=== PATIENT | female | born 2000 | race Caucasian/White ===

== ENCOUNTER 2020-10-01 20:49 | Inpatient (IN) | payer MEDICAID, SELFPAY ==
[2020-10-01 21:37] VITALS: BMI 18.2
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
[2020-10-02 06:00] VITALS: BP 113/61; PULSE 77; RESP 18; TEMP 36.4; O2SAT 97
--- NOTE | 2020-10-02 12:16 | PM.IMCN ---
History of Present Illness Data of Consult Service Date: 10/02/20 Primary Care Provider: Unknown Physician HPI Reason for consult: medical assessment 20 year old female with no known medical issues who is presently admitted to the inpatient Psych for major depression. She is cooperative with the evaluation. She denies any chronic medical illness and does not take any medication regular basis, she is current with covid 19 vaccine. She is in college but has put her social work study on hold for new. She denies, chest pain, sob, or other acute complaint Review of Systems Review of Systems: Gen: no fever Resp: no sob, no cough CV: no chest, no PACHECO, no leg edema GI: No n/v, no abd pain Neuro: No confusion Yes all other systems are reviewed and are negative [facility] Medical History (Updated 10/02/20 @ 12:21 by Alex Fuentes MD) Major depression Functional capacity: independent ambulation Patient : No Pertinent family history: Father with Parkinson, Mother with low blood pressure and vertigo Social History Household Members: Family Housing: House Do you presently have visiting nurse or other home services: No Patient Tobacco Use Status: Never used Tobacco Smoked in Last 30 Days: No e-Cigarette/Vaping Use: Never Used Patient Given Instructions on How to Stop Smoking: No Second Hand Smoke Exposure: No Use of substances other than those prescribed or required for medical reasons: Yes Substance Use Type: Marijuana Substance Use Frequency: Monthly Last Used Substance: Weeks (ago) Currently Displaying Signs/Symptoms of Drug Intoxication Withdrawal: No Any prior treatment program specific to substance use: No Have you been hit, kicked, punched, or otherwise hurt by someone within the past year? If so, by whom?: No Do you feel safe in your current relationship?: No Current Relationship Is there a partner from a previous relationship who is making you feel unsafe now?: No Are you made to feel afraid or neglected: No Advance Directives: No Advance Directives Information Provided: No Do you have thoughts of harming others: None Do you have a plan to hurt others: No Plan Recently lost weight without trying: No Eating poorly because of decreased appetite: No Nutrition Risks: No Nutritional Risk Patient : No : No Poor oral hygiene: No service: No Sexual orientation: Did not discuss Meds Allergies Allergy/AdvReac Type Severity Reaction Status Date / Time No Known Allergies Allergy Verified 10/01/20 21:39 Active Medications: Current Medications Generic Name Dose Route Start Last Admin Trade Name Caren PRN Reason Stop Dose Admin Acetaminophen 650 mg 10/01/20 22:03 Acetaminophen 325 Mg Tablet PO Q6H PRN Headache/Pain Mild Scale (1-3) Al Hydroxide/Mg Hydroxide 30 ml 10/01/20 22:03 Magnesium Hydrox/Alum Hydrox 30 Ml Oral.Susp PO Q6H PRN Heartburn/Nausea Hydroxyzine HCl 25 mg 10/01/20 22:03 Hydroxyzine Hcl 25 Mg Tablet PO BEDTIME PRN Anxiety Magnesium Hydroxide 30 ml 10/01/20 22:03 Milk Of Magnesia 30 Ml Oral.Susp PO DAILY PRN Constipation Trazodone HCl 50 mg 10/01/20 22:03 Trazodone Hcl 50 Mg Tablet PO BEDTIME PRN Insomnia Home Medications Medication Instructions Recorded Confirmed Last Taken Type 04/24 (21) See Rx Instructions .ROUTE .COMPLEX 10/01/20 10/01/20 09/30/20 21:00 History 1 tab Physical Exam Vital Signs and Narrative: Vital Signs: Last Vital Signs Temp 97.6 F 10/02/20 06:00 Pulse 77 10/02/20 06:00 Resp 18 10/02/20 06:00 BP 113/61 10/02/20 06:00 Pulse Ox 97 10/02/20 06:00 Body Mass Index 18.2 Const: Other: Constitutional Awake and Alert, No apparent distress Neck Supple, No lymphadenopathy Cardiovascular RRR, No M/R/G, S1 S2, No S3 S4, No pedal edema Respiratory Lungs clear, No respiratory distress Gastrointestinal Non tender, Non-distended Skin No rash Neurological Alert & oriented x3 Psychological depressed affect Assessment and Plan (1) Major depression: Status: Acute 20 year female with depression otherwise health, currently admitted to inpatient Psych for issues related to Major depression, has no acute medical issues at the moment and recommend continue current Psychiatric care with Pharmacotherapy an behavioral therapy. Suggest checking routine labs such BMP, CBC and TSH. Please contact us for new issues or concerns. Thanks
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
[2020-10-02 18:00] VITALS: BP 126/86; PULSE 62; RESP 16; TEMP 36.6; O2SAT 98
[2020-10-02 21:44] LABS: UPreg QC Valid YES; Urine Pregnancy NEGATIVE (NEGATIVE)
[2020-10-03 07:00] VITALS: BMI 18.5
--- NOTE | 2020-10-03 08:00 | ECG_ITS ---
Test Reason : ON MEDS Blood Pressure : / mmHG Vent. Rate : 057 BPM Atrial Rate : 057 BPM P-R Int : 138 ms QRS Dur : 098 ms QT Int : 402 ms P-R-T Axes : 038 069 041 degrees QTc Int : 391 ms Sinus bradycardia with sinus arrhythmia Otherwise normal ECG No previous ECGs available Referred By: Neyda Giraldo Electronically Signed By:JUAN ESCOBEDO MD
[2020-10-03] MEDS: FLUoxetine HCl Oral Solution 20 MG/5 ML SOLUTION 10 MG PO (08:21)
[2020-10-03] MEDS: Multivitamin TABLET 1 TAB PO (08:21)
[2020-10-03 08:23] LABS: MANUAL DIFF FLAG NO
[2020-10-03 08:26] LABS: Basophils Percent Auto 0.6 % (0-2); Eosinophils Absolute Auto 0.1 X10*3/uL (0.0-0.4); Eosinophils Percent Auto 2.3 % (0-4); Hematocrit 41.3 % (37-47); Hemoglobin 13.6 g/dl (12.0-16.0); Imm Gran Abs Auto 0.01 X10*3/uL (0.00-0.03); Imm Gran Pct Auto 0.2 % (0.0-0.4); Lymphocytes Absolute Auto 2.5 X10*3/uL (1.2-4.9); Lymphocytes Percent Auto 48.9 % (20-40); Mean Corpuscular HGB Conc 32.9 g/dl (31.0-35.0); Mean Corpuscular Hemoglobin 27.8 pg (27.0-33.0); Mean Corpuscular Volume 84.3 fL (80-98); Mean Platelet Volume 9.5 fL (9.4-12.3); Monocytes Absolute Auto 0.3 X10*3/uL (0.1-1.2); Neutrophils Absolute Auto 2.2 X10*3/uL (2.0-8.3); Platelet Count 207 X10*3/uL (160-400); Red Cell Distribution Width 12.3 % (11.0-16.0); White Blood Count 5.2 X10*3/uL (4.8-10.8)
[2020-10-03 08:54] LABS: Alanine Aminotransferase < 6 U/L (0-31); Albumin Level 4.1 g/dL (3.5-5.0); Alkaline Phosphatase 34 U/L (39-117); Anion Gap 10 (12-20); Aspartate Amino Transferase 12 U/L (5-31); Bilirubin Total 0.5 mg/dL (0.0-1.0); Blood Urea Nitrogen 11 mg/dL (9-16); Calcium 9.5 mg/dL (8.4-10.2); Carbon Dioxide 30 mmol/L (22-29); Chloride 106 mmol/L (96-108); Cholesterol 165 mg/dL; Creatinine Clr Calc Pharmacy 79.9; Estimated Glomerular Filt Rate > 60; Glucose Random 91 mg/dL (60-115); HDL Cholesterol 39 mg/dL; LDL Cholesterol Calculated 110 mg/dl; Potassium 4.5 mmol/L (3.3-5.1); Sodium 141 mmol/L (135-145); Triglycerides 83 mg/dL
[2020-10-03 09:07] LABS: Estimated Average Glucose 97 mg/dL
[2020-10-03 09:10] LABS: Thyroid Stimulating Hormone 1.14 uIU/mL (0.32-4.0); Vitamin D 25-OH Total 47.9 ng/mL (>30)
[2020-10-03 09:47] LABS: Folate 16.9 ng/mL (> or = 4.0); Vitamin B12 508 pg/mL (200-900)
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
[2020-10-03 17:45] VITALS: BP 124/68; PULSE 58; TEMP 37
[2020-10-03] MEDS: QUEtiapine Fumarate 25 MG TABLET 12.5 MG PO (22:26)
[2020-10-04 06:00] VITALS: BP 120/73; PULSE 79; RESP 16; O2SAT 99
[2020-10-04] MEDS: Multivitamin TABLET 1 TAB PO (09:16)
[2020-10-04] MEDS: FLUoxetine HCl Oral Solution 20 MG/5 ML SOLUTION 10 MG PO (09:16)
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
[2020-10-04 16:51] VITALS: BP 118/65; PULSE 84; RESP 16; TEMP 36.5; O2SAT 98
[2020-10-04] MEDS: QUEtiapine Fumarate 25 MG TABLET 12.5 MG PO (21:17)
[2020-10-05 06:48] VITALS: BP 135/77; PULSE 60; RESP 16; O2SAT 99
[2020-10-05] MEDS: Multivitamin TABLET 1 TAB PO (08:47)
[2020-10-05] MEDS: FLUoxetine HCl 10 MG CAPSULE PO (08:47)
--- NOTE | 2020-10-05 14:23 | HO.PSYCHPN ---
Subjective Subjective Date of Service: 10/05/20 Reason For Visit: Major Depressive Disorder Interim History: Pt reports he is tolerating prozac and seroquel well; reports hse slept a little better last night- thinks she may need more seroquel but would like to wait and try it again. she is feeling more secure in milieu. Seen in more interactive states today with team and peers. Review of Systems Review of Systems Gen: no fever Resp: no sob, no cough CV: no chest, no PACHECO, no leg edema GI: No n/v, no abd pain Neuro: No confusion Yes all other systems are reviewed and are negative Reports behavioral changes Psychiatric: Reports abnormal sleep pattern, Reports anxiety, Reports behavioral changes, Reports change in appetite, Reports depression, Reports difficulty concentrating, Reports auditory hallucinations, Reports hopelessness, Reports irritability, Reports anhedonia, Reports mood swings, Reports visual hallucinations, Reports hallucinations and Reports suicidal ideation Mental Status Exam Mental Status Exam Patient Appearance: Appropriate Patient Orientation: Person, Place, Time and Situation Level of Consciousness: Alert Patient Behavior: Appropriate and Talkative Mood Description: Depressed and Anxious Affect Description: Flat Patient Cognition Impaired: No Ability to Follow Directions: Good Speech Pattern: Clear (soft spoken) and Spontaneous Speech Memory Description: Intact Thought Content: positive for Intact Judgement: Good Diagnostics Vital Signs (24Hr): Vital Signs - 24 hr 10/04/20 16:51 10/05/20 06:48 Temperature 97.7 F Pulse Rate 84 60 Respiratory Rate 16 16 Blood Pressure 118/65 135/77 Pulse Oximetry 98 99 Body Mass Index 18.5 Labs Results: 10/03/20 08:09 10/03/20 08:09 Medications Medications Current Medications Generic Name Dose Route Start Last Admin Trade Name Freq PRN Reason Stop Dose Admin Acetaminophen 650 mg 10/01/20 22:03 Acetaminophen 325 Mg Tablet PO Q6H PRN Headache/Pain Mild Scale (1-3) Al Hydroxide/Mg Hydroxide 30 ml 10/01/20 22:03 Magnesium Hydrox/Alum Hydrox 30 Ml Oral.Susp PO Q6H PRN Heartburn/Nausea Fluoxetine HCl 10 mg 10/05/20 09:00 10/05/20 08:47 Fluoxetine Hcl 10 Mg Capsule PO 10 mg DAILY OKSANA Administration Hydroxyzine HCl 25 mg 10/01/20 22:03 Hydroxyzine Hcl 25 Mg Tablet PO BEDTIME PRN Anxiety Magnesium Hydroxide 30 ml 10/01/20 22:03 Milk Of Magnesia 30 Ml Oral.Susp PO DAILY PRN Constipation Multivitamins/Vitamin C 1 tab 10/03/20 09:00 10/05/20 08:47 Multivitamin Tablet PO 1 tab DAILY OKSANA Administration Non-Form Med ( 1 tab 10/05/20 21:00 Norethindrone PO Ethinyl Estradiol 1/ BEDTIME OKSANA 0.02mg(Junel)) Quetiapine Fumarate 12.5 mg 10/03/20 16:38 10/03/20 22:26 Quetiapine Fumarate 25 Mg Tablet PO 12.5 mg TID PRN Administration agitation,anxiety,insomnia Quetiapine Fumarate 12.5 mg 10/04/20 21:00 10/04/20 21:17 Quetiapine Fumarate 25 Mg Tablet PO 12.5 mg BEDTIME OKSANA Administration Trazodone HCl 50 mg 10/01/20 22:03 Trazodone Hcl 50 Mg Tablet PO BEDTIME PRN Insomnia Allergies Allergies Allergy/AdvReac Type Severity Reaction Status Date / Time No Known Allergies Allergy Verified 10/01/20 21:39 Assessment & Plan Assessment & Plan (1) Severe recurrent major depression with psychotic features, mood-congruent: Status: Acute Code(s): F33.3 - Major depressive disorder, recurrent, severe with psychotic symptoms Assessment and Plan: 20 yo female, hx of childhood trauma, depressive and anxious sx since childhood, with reports of SI with plan to OD on Tylenol. Pt has been decompensating by her report for over a month with pre-catatonic sx including an inability to get out of bed, perform ADL's, eat, drink, or basically function. Precipitants include being home from college in [facility] and unable to return due to pandemic restrictions, father is ill, pt is uncomfortable living with parents has no money, no job and feels she has lost control. Hx of Prozac, Seroquel combination which has helped her in the past. Plan- no change continue as per below : Continue Prozac 10 mg daily Change Seroquel to 12.5 mg tid prn and 12.5 mg hs Collateral contacts (2) PTSD (post-traumatic stress disorder): Status: Acute Code(s): F43.10 - Post-traumatic stress disorder, unspecified Greater than 50% of the session was spent on counseling and/or coordination of care Reason for contiued inpatient stay Substantial Risk for: harm to self, inability to function and med/psych decompensation
[2020-10-05 18:00] VITALS: BP 126/77; PULSE 88; TEMP 36.4
[2020-10-05] MEDS: QUEtiapine Fumarate 25 MG TABLET 12.5 MG PO (20:26)
[2020-10-06 06:00] VITALS: BP 109/68; PULSE 71; RESP 16; TEMP 36.8; O2SAT 97
[2020-10-06] MEDS: FLUoxetine HCl 10 MG CAPSULE PO (08:40)
[2020-10-06] MEDS: Multivitamin TABLET 1 TAB PO (08:40)
--- NOTE | 2020-10-06 11:38 | P.PNPSI_ITS ---
Subjective Subjective Date of Service: 10/06/20 Reason For Visit: Major Depressive Disorder Interim History: Pt reports she is tolerating prozac and seroquel well; reports she would like to increase the seroquel at HS to 25 mg. she reports feeling a little more anxious today and reflects it may be due to coffee. discussed using seroquel prn but she will try coping skills and hydration. Seen in more interactive states today with team and peers. Review of Systems Review of Systems Gen: no fever Resp: no sob, no cough CV: no chest, no PACHECO, no leg edema GI: No n/v, no abd pain Neuro: No confusion Yes all other systems are reviewed and are negative Reports behavioral changes Psychiatric: Reports abnormal sleep pattern, Reports anxiety, Reports behavioral changes, Reports change in appetite, Reports depression, Reports difficulty concentrating, Reports auditory hallucinations, Reports hopelessness, Reports irritability, Reports anhedonia, Reports mood swings, Reports visual hallucinations, Reports hallucinations and Reports suicidal ideation Mental Status Exam Mental Status Exam Patient Appearance: Appropriate Patient Orientation: Person, Place, Time and Situation Level of Consciousness: Alert Patient Behavior: Appropriate and Talkative Mood Description: Depressed and Anxious Affect Description: Appropriate and Anxious Patient Cognition Impaired: No Ability to Follow Directions: Good Speech Pattern: Clear (soft spoken) and Spontaneous Speech Memory Description: Intact Judgement: Good Diagnostics Vital Signs (24Hr): Vital Signs - 24 hr 10/05/20 18:00 10/06/20 06:00 Temperature 97.5 F 98.2 F Pulse Rate 88 71 Respiratory Rate 16 Blood Pressure 126/77 109/68 Pulse Oximetry 97 Body Mass Index 18.5 Labs Results: 10/03/20 08:09 10/03/20 08:09 Medications Medications Current Medications Generic Name Dose Route Start Last Admin Trade Name Freq PRN Reason Stop Dose Admin Acetaminophen 650 mg 10/01/20 22:03 Acetaminophen 325 Mg Tablet PO Q6H PRN Headache/Pain Mild Scale (1-3) Al Hydroxide/Mg Hydroxide 30 ml 10/01/20 22:03 Magnesium Hydrox/Alum Hydrox 30 Ml Oral.Susp PO Q6H PRN Heartburn/Nausea Fluoxetine HCl 10 mg 10/05/20 09:00 10/06/20 08:40 Fluoxetine Hcl 10 Mg Capsule PO 10 mg DAILY OKSANA Administration Hydroxyzine HCl 25 mg 10/01/20 22:03 Hydroxyzine Hcl 25 Mg Tablet PO BEDTIME PRN Anxiety Magnesium Hydroxide 30 ml 10/01/20 22:03 Milk Of Magnesia 30 Ml Oral.Susp PO DAILY PRN Constipation Multivitamins/Vitamin C 1 tab 10/03/20 09:00 10/06/20 08:40 Multivitamin Tablet PO 1 tab DAILY OKSANA Administration Non-Form Med ( 1 tab 10/05/20 21:00 10/05/20 20:27 Norethindrone PO 1 tab Ethinyl Estradiol 1/ BEDTIME OKSANA Administration 0.02mg(Junel)) Quetiapine Fumarate 12.5 mg 10/03/20 16:38 10/03/20 22:26 Quetiapine Fumarate 25 Mg Tablet PO 12.5 mg TID PRN Administration agitation,anxiety,insomnia Quetiapine Fumarate 12.5 mg 10/04/20 21:00 10/05/20 20:26 Quetiapine Fumarate 25 Mg Tablet PO 12.5 mg BEDTIME OKSANA Administration Trazodone HCl 50 mg 10/01/20 22:03 Trazodone Hcl 50 Mg Tablet PO BEDTIME PRN Insomnia Allergies Allergies Allergy/AdvReac Type Severity Reaction Status Date / Time No Known Allergies Allergy Verified 10/01/20 21:39 Assessment & Plan Assessment & Plan (1) Severe recurrent major depression with psychotic features, mood-congruent: Status: Acute Code(s): F33.3 - Major depressive disorder, recurrent, severe with psychotic symptoms Assessment and Plan: 20 yo female, hx of childhood trauma, depressive and anxious sx since childhood, with reports of SI with plan to OD on Tylenol. Pt has been decompensating by her report for over a month with pre-catatonic sx including an inability to get out of bed, perform ADL's, eat, drink, or basically function. Precipitants include being home from college in [facility] and unable to return due to pandemic restrictions, father is ill, pt is uncomfortable living with parents has no money, no job and feels she has lost control. Hx of Prozac, Seroquel combination which has helped her in the past. Plan- Continue Prozac 10 mg daily *Change Seroquel to 12.5 mg tid prn and 25 mg hs Collateral contacts (2) PTSD (post-traumatic stress disorder): Status: Acute Code(s): F43.10 - Post-traumatic stress disorder, unspecified Greater than 50% of the session was spent on counseling and/or coordination of care Reason for contiued inpatient stay Substantial Risk for: harm to self, rapid decompensation and med/psych decompensation
[2020-10-06 16:59] VITALS: BP 124/77; PULSE 64; TEMP 36.7; O2SAT 98
[2020-10-06] MEDS: QUEtiapine Fumarate 25 MG TABLET PO (21:19)
[2020-10-07 06:00] VITALS: BP 114/68; PULSE 77; RESP 16; TEMP 36.4; O2SAT 97
[2020-10-07] MEDS: FLUoxetine HCl 10 MG CAPSULE PO (08:33)
[2020-10-07] MEDS: Multivitamin TABLET 1 TAB PO (08:33)
--- NOTE | 2020-10-07 12:28 | HO.PSYCHPN ---
Subjective Subjective Date of Service: 10/07/20 Reason For Visit: Major Depressive Disorder Interim History: Pt reports she is tolerating prozac and seroquel well; reports she slept a little better with seroquel 25 mg at at HS. she is working on practicing coping skills. Seen in more interactive states today with team and peers. Review of Systems Review of Systems Gen: no fever Resp: no sob, no cough CV: no chest, no PACHECO, no leg edema GI: No n/v, no abd pain Neuro: No confusion Yes all other systems are reviewed and are negative Reports behavioral changes Psychiatric: Reports abnormal sleep pattern, Reports anxiety, Reports behavioral changes, Reports change in appetite, Reports depression, Reports difficulty concentrating, Reports auditory hallucinations, Reports hopelessness, Reports irritability, Reports anhedonia, Reports mood swings, Reports visual hallucinations, Reports hallucinations and Reports suicidal ideation Mental Status Exam Mental Status Exam Patient Appearance: Appropriate Patient Orientation: Person, Place, Time and Situation Level of Consciousness: Alert Patient Behavior: Appropriate and Talkative Mood Description: Depressed and Anxious Affect Description: Appropriate and Anxious Patient Cognition Impaired: No Ability to Follow Directions: Good Speech Pattern: Clear (soft spoken) and Spontaneous Speech Memory Description: Intact Judgement: Good Diagnostics Vital Signs (24Hr): Vital Signs - 24 hr 10/06/20 16:59 10/07/20 06:00 Temperature 98.0 F 97.6 F Pulse Rate 64 77 Respiratory Rate 16 Blood Pressure 124/77 114/68 Pulse Oximetry 98 97 Body Mass Index 18.5 Labs Results: 10/03/20 08:09 10/03/20 08:09 Medications Medications Current Medications Generic Name Dose Route Start Last Admin Trade Name Joseq PRN Reason Stop Dose Admin Acetaminophen 650 mg 10/01/20 22:03 Acetaminophen 325 Mg Tablet PO Q6H PRN Headache/Pain Mild Scale (1-3) Al Hydroxide/Mg Hydroxide 30 ml 10/01/20 22:03 Magnesium Hydrox/Alum Hydrox 30 Ml Oral.Susp PO Q6H PRN Heartburn/Nausea Fluoxetine HCl 10 mg 10/05/20 09:00 10/07/20 08:33 Fluoxetine Hcl 10 Mg Capsule PO 10 mg DAILY OKSANA Administration Hydroxyzine HCl 25 mg 10/01/20 22:03 Hydroxyzine Hcl 25 Mg Tablet PO BEDTIME PRN Anxiety Magnesium Hydroxide 30 ml 10/01/20 22:03 Milk Of Magnesia 30 Ml Oral.Susp PO DAILY PRN Constipation Multivitamins/Vitamin C 1 tab 10/03/20 09:00 10/07/20 08:33 Multivitamin Tablet PO 1 tab DAILY OKSANA Administration Non-Form Med ( 1 tab 10/05/20 21:00 10/06/20 21:20 Norethindrone PO 1 tab Ethinyl Estradiol 1/ BEDTIME OKSANA Administration 0.02mg(Junel)) Quetiapine Fumarate 12.5 mg 10/03/20 16:38 10/03/20 22:26 Quetiapine Fumarate 25 Mg Tablet PO 12.5 mg TID PRN Administration agitation,anxiety,insomnia Quetiapine Fumarate 25 mg 10/06/20 21:00 10/06/20 21:19 Quetiapine Fumarate 25 Mg Tablet PO 25 mg BEDTIME OKSANA Administration Trazodone HCl 50 mg 10/01/20 22:03 Trazodone Hcl 50 Mg Tablet PO BEDTIME PRN Insomnia Allergies Allergies Allergy/AdvReac Type Severity Reaction Status Date / Time No Known Allergies Allergy Verified 10/01/20 21:39 Assessment & Plan Assessment & Plan (1) Severe recurrent major depression with psychotic features, mood-congruent: Status: Acute Code(s): F33.3 - Major depressive disorder, recurrent, severe with psychotic symptoms Assessment and Plan: 20 yo female, hx of childhood trauma, depressive and anxious sx since childhood, with reports of SI with plan to OD on Tylenol. Pt has been decompensating by her report for over a month with pre-catatonic sx including an inability to get out of bed, perform ADL's, eat, drink, or basically function. Precipitants include being home from college in [facility] and unable to return due to pandemic restrictions, father is ill, pt is uncomfortable living with parents has no money, no job and feels she has lost control. Hx of Prozac, Seroquel combination which has helped her in the past. Plan- Continue Prozac 10 mg daily Seroquel to 12.5 mg tid prn and 25 mg hs Collateral contacts (2) PTSD (post-traumatic stress disorder): Status: Acute Code(s): F43.10 - Post-traumatic stress disorder, unspecified Greater than 50% of the session was spent on counseling and/or coordination of care Reason for contiued inpatient stay Substantial Risk for: harm to self and rapid decompensation
[2020-10-07 18:00] VITALS: BP 117/74; PULSE 82; TEMP 36.9
[2020-10-07] MEDS: QUEtiapine Fumarate 25 MG TABLET PO (21:51)
[2020-10-08 06:00] VITALS: BP 113/65; PULSE 82; RESP 16; TEMP 36.4; O2SAT 97
[2020-10-08] MEDS: Multivitamin TABLET 1 TAB PO (08:59)
[2020-10-08] MEDS: FLUoxetine HCl 10 MG CAPSULE PO (08:59)
[2020-10-08 17:12] VITALS: BP 122/73; PULSE 75; RESP 18; TEMP 37.1; O2SAT 99
--- NOTE | 2020-10-08 17:12 | P.PNPSI_ITS ---
Subjective Subjective Date of Service: 10/08/20 Reason For Visit: Major Depressive Disorder Subjective Notes: Conditional Voluntary Healthcare Proxy: No Guardianship: No Medical Problems Affecting Mental Status: No Interim History: Pt feeling improved with medications having been re-started and milieu work. She is visable, active and appears comfortable with team and peers. She believes current crisis has passed, with assistance from team and medications. She denies SI, HI and asks to discuss discharge. We will plan for 09/09 with antidepressant increase. Medication Compliance: Yes Side effects from medications: No Attending Groups: Yes Review of Systems Review of Systems Yes all other systems are reviewed and are negative Psychiatric: Reports no additional psychiatric complaints and Reports suicidal ideation (denies) Mental Status Exam Mental Status Exam Patient Appearance: Appropriate Patient Orientation: Person, Place, Time and Situation Level of Consciousness: Awake and Alert Patient Behavior: Appropriate, Talkative and Cooperative Mood Description: Anxious and Apprehensive Affect Description: Happy Patient Cognition Impaired: No Ability to Follow Directions: Good Speech Pattern: Spontaneous Speech Memory Description: Intact Hallucinations: None Delusions: Not Present Thought Process: Intact Thought Content: positive for Intact Judgement: Good Diagnostics Vital Signs (24Hr): Vital Signs - 24 hr 10/07/20 18:00 10/08/20 06:00 Temperature 98.4 F 97.5 F Pulse Rate 82 82 Respiratory Rate 16 Blood Pressure 117/74 113/65 Pulse Oximetry 97 Body Mass Index 18.5 Labs Results: 10/03/20 08:09 10/03/20 08:09 Medications Medications Current Medications Generic Name Dose Route Start Last Admin Trade Name Freq PRN Reason Stop Dose Admin Acetaminophen 650 mg 10/01/20 22:03 Acetaminophen 325 Mg Tablet PO Q6H PRN Headache/Pain Mild Scale (1-3) Al Hydroxide/Mg Hydroxide 30 ml 10/01/20 22:03 Magnesium Hydrox/Alum Hydrox 30 Ml Oral.Susp PO Q6H PRN Heartburn/Nausea Fluoxetine HCl 10 mg 10/05/20 09:00 10/08/20 08:59 Fluoxetine Hcl 10 Mg Capsule PO 10 mg DAILY OKSANA Administration Hydroxyzine HCl 25 mg 10/01/20 22:03 Hydroxyzine Hcl 25 Mg Tablet PO BEDTIME PRN Anxiety Magnesium Hydroxide 30 ml 10/01/20 22:03 Milk Of Magnesia 30 Ml Oral.Susp PO DAILY PRN Constipation Multivitamins/Vitamin C 1 tab 10/03/20 09:00 10/08/20 08:59 Multivitamin Tablet PO 1 tab DAILY OKSANA Administration Non-Form Med ( 1 tab 10/05/20 21:00 10/07/20 21:55 Norethindrone PO 1 tab Ethinyl Estradiol 1/ BEDTIME OKSANA Administration 0.02mg(Junel)) Pat Own Med (Midol 2 each 10/08/20 12:06 Caffeine Free) PO Q6H PRN cramping Quetiapine Fumarate 12.5 mg 10/03/20 16:38 10/03/20 22:26 Quetiapine Fumarate 25 Mg Tablet PO 12.5 mg TID PRN Administration agitation,anxiety,insomnia Quetiapine Fumarate 25 mg 10/06/20 21:00 10/07/20 21:51 Quetiapine Fumarate 25 Mg Tablet PO 25 mg BEDTIME OKSANA Administration Trazodone HCl 50 mg 10/01/20 22:03 Trazodone Hcl 50 Mg Tablet PO BEDTIME PRN Insomnia Allergies Allergies Allergy/AdvReac Type Severity Reaction Status Date / Time No Known Allergies Allergy Verified 10/01/20 21:39 Assessment & Plan Assessment & Plan (1) Severe recurrent major depression with psychotic features, mood-congruent: Status: Acute Code(s): F33.3 - Major depressive disorder, recurrent, severe with psychotic symptoms Assessment and Plan: 20 yo female, hx of childhood trauma, depressive and anxious sx since childhood, with reports of SI with plan to OD on Tylenol. Pt has been decompensating by her report for over a month with pre-catatonic sx including an inability to get out of bed, perform ADL's, eat, drink, or basically function. Precipitants include being home from college in [facility] and unable to return due to pandemic restrictions, father is ill, pt is uncomfortable living with parents has no money, no job and feels she has lost control. Hx of Prozac, Seroquel combination which has helped her in the past. Plan- Increase Prozac to 15 mg daily Seroquel to 12.5 mg tid prn and 25 mg hs Collateral contacts (2) PTSD (post-traumatic stress disorder): Status: Acute Code(s): F43.10 - Post-traumatic stress disorder, unspecified Greater than 50% of the session was spent on counseling and/or coordination of care Reason for contiued inpatient stay Substantial Risk for: harm to self, inability to function and rapid decompensation
[2020-10-08] MEDS: QUEtiapine Fumarate 25 MG TABLET PO (21:35)
[2020-10-09 06:00] VITALS: BP 116/72; PULSE 65; RESP 16; TEMP 36.4; O2SAT 97
[2020-10-09] MEDS: FLUoxetine HCl Oral Solution 20 MG/5 ML SOLUTION 15 MG PO (09:36)
[2020-10-09] MEDS: Multivitamin TABLET 1 TAB PO (09:40)
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
== END 2020-10-09 13:00 | disposition home or self-care (01) | DRG 751 ==
PROVIDERS: Admitting Provider Clinical Nurse Specialist Psychiatric/Mental Health, Adult; Visit Provider Clinical Nurse Specialist Psychiatric/Mental Health, Adult
DX: F33.3 Major depressive disorder, recurrent, severe with psychotic symptoms (principal); R45.851 Suicidal ideations; F43.10 Post-traumatic stress disorder, unspecified; Z91.5 Personal history of self-harm; Z79.899 Other long term (current) drug therapy
CPT/HCPCS: 36415; 80053; 80061; 81025; 82306; 82607; 82746; 83036; 84443; 85025; 93005